=== PATIENT | male | born 1955 | race Two or more races ===

== ENCOUNTER 2019-02-01 09:32 | Day surgery (SDC) | payer OTHER ==
[~2019-02-01] VITALS: Ht 162.6 cm; Wt 71.5 kg
[~2019-02-01 09:32] MED LIST: ASPI325T8 PO; ASPI81TA59 PO; ATOR20TA58 PO; BUPIVACAINE-EPI 0.25%-1:200000 MPF 30 ML VIAL. INJ ONE; HYDROmorphone 2 MG/ML VIAL IV PRN; IV RINGERS,LACTATED 1000ML 1,000 ML IV SCH; LISI-334 PO; LISI10TA2 PO; MECL-51 PO; MORPHINE SULFATE 2 MG/ML VIAL. IV PRN; ONDANSETRON PF 4 MG/2 ML VIAL. IV PRN; PRAV20TA2 PO; PROCHLORPERAZINE 10 MG/2 ML VIAL. IV PRN; fentaNYL PF VIAL 100 MCG/2 ML VIAL IV PRN
[2019-02-01] MEDS ORDERED: ACETAMINOPHEN 500 MG TABLET PO ONE (09:45)
[2019-02-01] MEDS ORDERED: fentaNYL PF VIAL 100 MCG/2 ML VIAL ONE ×3 (10:34→12:57)
[2019-02-01] MEDS ORDERED: FAMOTIDINE 20 MG/2 ML VIAL ONE (10:34)
[2019-02-01] MEDS ORDERED: PROPOFOL 20 ML IV ONE (10:34)
[2019-02-01] MEDS ORDERED: DEXAMETHASONE SOD PHOS 20 MG/5 ML VIAL. ONE (10:34)
[2019-02-01] MEDS ORDERED: ONDANSETRON PF 4 MG/2 ML VIAL. ONE (10:34)
[2019-02-01] MEDS ORDERED: LIDOCAINE 2% PF 5 ML VIAL. ONE (10:34)
[2019-02-01] MEDS ORDERED: ROCURONIUM 50 MG/5 ML VIAL. ONE (10:34)
[2019-02-01 11:05] LABS: BASO # 0.1 x10^3/uL (0.0-0.2); BASO % 1 % (0-3); EOS # 0.5 x10^3/uL (0.0-0.7); EOS % 6 % (0-3); HEMATOCRIT 43.8 % (39.0-53.0); HEMOGLOBIN 15.1 g/dL (13.0-17.5); LYMPH # 2.2 x10^3/uL (1.0-4.8); LYMPH % 27 % (24-48); MEAN CORPUSCULAR HEMOGLOBIN 34 pg (25-35); MEAN CORPUSCULAR HGB CONC 34 g/dL (31-37); MEAN CORPUSCULAR VOLUME 98 fL (79-100); MONO # 0.7 x10^3/uL (0.0-1.1); MONO % 9 % (0-9); NEUT # 4.7 x10^3/uL (1.8-7.7); NEUT % 57 % (31-73); RED BLOOD COUNT 4.47 x10^6/uL (4.30-5.70); RED CELL DISTRIBUTION WIDTH 12.9 % (11.5-14.5); WHITE BLOOD COUNT 8.3 x10^3/uL (4.0-11.0)
[2019-02-01] MEDS ORDERED: ePHEDrine PF IN SALINE 50 MG/10 ML SYRINGE. IV ONE (11:10)
[2019-02-01 11:11] LABS: CALCIUM 8.6 mg/dL (8.5-10.1); CREATININE 1.2 mg/dL (0.7-1.3); GFR 61.1; POTASSIUM 3.9 mmol/L (3.5-5.1)
[2019-02-01 11:14] LABS: PROTHROMBIN TIME PATIENT 13.3 SEC (11.7-14.0)
[2019-02-01 11:41] LABS: PLT ESTIMATE DECREASED (ADEQUATE)
[2019-02-01] MEDS ORDERED: NEOSTIGMINE METHYLSULFATE 5 MG/5 ML SYRINGE. ONE (12:19)
[2019-02-01] MEDS ORDERED: GLYCOPYRROLATE 1 MG/5 ML VIAL. ONE (12:21)
[2019-02-01 12:26] LABS: PLATELET COUNT 112 x10^3/uL (140-400)
--- NOTE | 2019-02-01 12:27 | PDOC4 ---
Operative Note Operative Note Date: 02/01/2019 Preoperative diagnosis: Bilateral inguinal hernias Postoperative diagnosis: Same Procedure: Robotic-assisted laparoscopic bilateral inguinal hernia repairs with mesh Surgeon: Miguel Angel Specimen: None Dictation: Patient is a 64-year-old male with bilateral inguinal hernias that are becoming more painful or last several months. Procedure of robotic-assisted laparoscopic bilateral hernia repair with mesh was explained to the patient in detail as well as his family were through an cigarette catcher all risks benefits were also discussed including bleeding infection injury to intra- abdominal contents possibly necessitating further or open operations alternatives to this procedure also discussed with the patient and family seem to understand and gave both verbal and written consent to have the procedure performed. Patient was taken to the operating room placed in supine position general anesthesia was initiated once patient was sleep and intubated is placed in low lithotomy positioning and his abdomen was prepped and draped usual sterile fashion using ChloraPrep and area just above his umbilicus was injected with quarter percent Marcaine with epinephrine incision was made 11 blade scalpel varies needle was placed within the abdomen creating pneumoperitoneum once this was complete 8mm da Sky port was placed and a da Sky camera was placed within the abdomen which was inspected no other abdomen maladies were noted was noted that he had bilateral inguinal hernias with no incarceration. 8mm da Sky port was placed in the right mid abdomen and one in the right left abdomen the da Sky robot was then brought in and docked all port sites surgeon went to the robotic console using grasper and Endo Isac scissors the peritoneum was incised on the right side a flap was propagated posteriorly reducing the hernia sac. Attention is then turned to the left side in similar fashion a window was made in the peritoneum reducing the hernia sac. Bard 3-D max mesh for the right and left side were both used in place on the appropriate sides covering the hernia defect the peritoneum was then closed with running 20V lock suture. The robot was undocked from all port sites all ports removed pneumoperitoneum reduced all incisions were closed for septic and a Monocryl Mastisol Steri-Strips and island dressings were applied. Patient was awakened and asked bated operating room taken to recovery in stable condition all sponge instrument needle counts listed as correct estimate blood loss 5 mL BOAZ MONTENEGRO MD Feb 01, 2019 12:27
--- NOTE | 2019-02-01 12:29 | DISCH ---
DISCHARGE INSTRUCTIONS Condition on Discharge Condition on Discharge: Stable Activity After Discharge Activity Instructions for Disc: Avoid exertion Other activity instructions: no lifting more than 20 pounds for 2 weeks Diet after Discharge Diet after Discharge: Regular Wound Incision Care Wound/Incision Care: May get incision wet, Other, see below Other wound/incision instructi: May shower in 24 hours Contacting the [facility] after DC Call your doctor for: If your condition worsens Follow-Up Follow up with: Dr. Montenegro in 2 weeks Treatment/Equipment after DC Adaptive Equipment Issued: None BOAZ MONTENEGRO MD Feb 01, 2019 12:29
[2019-02-01] MEDS ORDERED: DESFLURANE 61 TO 120 MINUTES IH ONE (12:38)
[2019-02-01] MEDS: fentaNYL PF VIAL 100 MCG/2 ML VIAL IV PRN ×2 (13:14→13:32)
[2019-02-01] MEDS ORDERED: OXYC1TAB15 PO (13:29)
[2019-02-01] MEDS ORDERED: oxyCODONE/APAP 5/325 1 TAB TABLET PO ONE ×2 (13:45)
[2019-02-01 14:02] VITALS: BP 136/64
== END 2019-02-01 18:30 | disposition home or self-care (01) ==
LOC: SURG 09:32 → MERGE 11:15 → SURG 18:30
PROVIDERS: ATTEND Surgery
DX: K40.20 Bilateral inguinal hernia, without obstruction or gangrene, not specified as recurrent (principal); E78.5 Hyperlipidemia, unspecified; I10 Essential (primary) hypertension; Z79.01 Long term (current) use of anticoagulants; Z79.82 Long term (current) use of aspirin; Z86.73 Personal history of transient ischemic attack (TIA), and cerebral infarction without residual deficits; Z87.891 Personal history of nicotine dependence
CPT/HCPCS: 36415; 49650; 80048; 85025; 85610; 85730; A7015; C1781; J0171; J0690; J1100; J2001; J2405; J2704; J2710; J3010; J3490; J7120; S2900

== ENCOUNTER 2019-02-26 13:27 | Emergency (ER) | payer MEDICARE, OTHER ==
[~2019-02-26] VITALS: Ht 162.6 cm; Wt 71.7 kg
[~2019-02-26 13:27] MED LIST changes: -BUPIVACAINE-EPI 0.25%-1:200000 MPF 30 ML VIAL. INJ ONE; -HYDROmorphone 2 MG/ML VIAL IV PRN; -IV RINGERS,LACTATED 1000ML 1,000 ML IV SCH; -MORPHINE SULFATE 2 MG/ML VIAL. IV PRN; -ONDANSETRON PF 4 MG/2 ML VIAL. IV PRN; +OXYC1TAB15 PO; -PROCHLORPERAZINE 10 MG/2 ML VIAL. IV PRN; -fentaNYL PF VIAL 100 MCG/2 ML VIAL IV PRN
--- NOTE | 2019-02-26 14:54 | RAD ---
Examination: CT of the abdomen pelvis without contrast HISTORY: History of left-sided pain after lifting COMPARISON: None available TECHNIQUE: Axial CT images of the abdomen pelvis without contrast. Coronal and sagittal reformats are performed. Exposure: One or more of the following individualized dose reduction techniques were utilized for this examination: 1. Automated exposure control 2. Adjustment of the mA and/or kV according to patient size 3. Use of iterative reconstruction technique FINDINGS: Mild bibasilar lung atelectasis. No evidence of free air identified in the abdomen. The evaluation of the solid organs is limited due to lack of IV contrast. The evaluation of bowel is limited due to lack of oral contrast. The noncontrasted liver, spleen, adrenals grossly appears unremarkable. The gallbladder is mildly distended. The stomach is minimally distended. The visualized pancreas grossly appears unremarkable. The small bowel is nondilated. Feces and gas noted in the colon. No evidence of intrarenal collecting system calculi or hydronephrosis. Urinary bladder is mildly distended. Surgical changes of hernia repair. Moderate aortic atherosclerosis. Moderate degenerative changes thoracolumbar spine. Probable prior surgical changes anterior right superior iliac spine. IMPRESSION: 1. No acute intra-abdominal findings. Electronically signed by: Rob Harden MD (02/26/2019 2:51 PM) [facility]
[2019-02-26 15:50] LABS: BILIRUBIN,URINE NEGATIVE (NEG); CLARITY,URINE CLEAR; COLOR,URINE YELLOW; NITRITE,URINE NEGATIVE (NEG); PH,URINE 5.5; PROTEIN,URINE NEGATIVE (NEG-TRACE); UROBILINOGEN,URINE 0.2 mg/dL (0.2 mg/dL)
[2019-02-26 16:00] LABS: BACTERIA,URINE 0 /HPF (0-FEW); RBC,URINE 0 /HPF (0-2); WBC,URINE 0 /HPF (0-4)
--- NOTE | 2019-02-26 16:15 | PHYS DOC ---
Past Medical History Past Medical History: Hypertension Past Surgical History: Appendectomy, Other Additional Past Surgical Histo: back Alcohol Use: None Drug Use: None Adult General Chief Complaint Chief Complaint: GROIN PAIN HPI HPI Patient is a 64 year old Welsh speaking male who presents with complaining of pain in hernia surgery area. Patient had bilateral laparoscopic inguinal hernia repair 3 weeks ago. She states he lifted about 50 pounds back one week ago and felt pain in left groin area that getting worse with activity and walking. Patient denies abdominal pain, nausea and vomiting, diarrhea and constipation, fever and chills, urinary symptom, bulging at the area of surgery. Patient denies any pain in supine position and doesn't want to have pain medication. Review of Systems Review of Systems Constitutional: Denies fever or chills [] Eyes: Denies change in visual acuity, redness, or eye pain [] HENT: Denies nasal congestion or sore throat [] Respiratory: Denies cough or shortness of breath [] Cardiovascular: No additional information not addressed in HPI [] GI: Denies abdominal pain, nausea, vomiting, bloody stools or diarrhea [] : Denies dysuria or hematuria [] Musculoskeletal: Denies back pain or joint pain [] Integument: Denies rash or skin lesions [] Neurologic: Denies headache, focal weakness or sensory changes [] Endocrine: Denies polyuria or polydipsia [] All other systems were reviewed and found to be within normal limits, except as documented in this note. Allergies Allergies Allergies Coded Allergies Type Severity Reaction Last Updated Verified No Known Drug Allergies 10/12/13 No Physical Exam Physical Exam Constitutional: Well developed, well nourished, no acute distress, non-toxic appearance. [] HENT: Normocephalic, atraumatic. Eyes: PERRLA, EOMI, conjunctiva normal, no discharge. [] Neck: Normal range of motion, no tenderness, supple, no stridor. [] Cardiovascular:Heart rate regular rhythm, no murmur [] Lungs & Thorax: Bilateral breath sounds clear to auscultation [] Abdomen: Bowel sounds normal, soft, no tenderness, no masses, no pulsatile masses. clean laparoscopic incision area, bilateral inguinal without sign of infection or hernia[] Skin: Warm, dry, no erythema, no rash. [] Back: No tenderness, no CVA tenderness. [] Extremities: No tenderness, no cyanosis, no clubbing, ROM intact, no edema. [] Neurologic: Alert and oriented X 3, no focal deficits noted. [] Psychologic: Affect normal, judgement normal, mood normal. [] Current Patient Data Vital Signs Vital Signs Date Time Temp Pulse Resp B/P (MAP) Pulse Ox O2 Delivery O2 Flow Rate FiO2 02/26/19 13:35 98.6 92 16 139/75 (96) 97 Room Air 98.6 Lab Values Laboratory Tests Test 02/26/19 15:16 Urine Collection Type Unknown Urine Color Yellow Urine Clarity Clear Urine pH 5.5 Urine Specific [place]xton <=1.005 Urine Protein Negative mg/dL (NEG-TRACE) Urine Glucose (UA) Negative mg/dL (NEG) Urine Ketones (Stick) Negative mg/dL (NEG) Urine Blood Negative (NEG) Urine Nitrite Negative (NEG) Urine Bilirubin Negative (NEG) Urine Urobilinogen Dipstick 0.2 mg/dL (0.2 mg/dL) Urine Leukocyte Esterase Negative (NEG) Urine RBC 0 /HPF (0-2) Urine WBC 0 /HPF (0-4) Urine Bacteria 0 /HPF (0-FEW) EKG EKG [] Radiology/Procedures Radiology/Procedures [][facility] [address], [place] [id number] IMAGING REPORT Signed PATIENT: MALACHI LIRAOUNT: [id number] : 1955 LOCATION: ER AGE: 64 SEX: M EXAM STATUS: REG ER ORD. PHYSICIAN: ALLISON CANTU MD REASON: Bilateral inguinal surgery, pain in left side after lifting PROCEDURE: CT ABDOMEN PELVIS WO CONTRAST Examination: CT of the abdomen pelvis without contrast HISTORY: History of left-sided pain after lifting COMPARISON: None available TECHNIQUE: Axial CT images of the abdomen pelvis without contrast. Coronal and sagittal reformats are performed. Exposure: One or more of the following individualized dose reduction techniques were utilized for this examination: 1. Automated exposure control 2. Adjustment of the mA and/or kV according to patient size 3. Use of iterative reconstruction technique FINDINGS: Mild bibasilar lung atelectasis. No evidence of free air identified in the abdomen. The evaluation of the solid organs is limited due to lack of IV contrast. The evaluation of bowel is limited due to lack of oral contrast. The noncontrasted liver, spleen, adrenals grossly appears unremarkable. The gallbladder is mildly distended. The stomach is minimally distended. The visualized pancreas grossly appears unremarkable. The small bowel is nondilated. Feces and gas noted in the colon. No evidence of intrarenal collecting system calculi or hydronephrosis. Urinary bladder is mildly distended. Surgical changes of hernia repair. Moderate aortic atherosclerosis. Moderate degenerative changes thoracolumbar spine. Probable prior surgical changes anterior right superior iliac spine. IMPRESSION: 1. No acute intra-abdominal findings. Electronically signed by: Rob Harden MD (02/26/2019 2:51 PM) [id number] DICTATED and SIGNED BY: ROB HARDEN MD DATE: 02/26/19 1451 Course & Med Decision Making Course & Med Decision Making Pertinent Labs and Imaging studies reviewed. (See chart for details) Evaluation of patient in ER showed 63-year-old male patient with history of recent bilateral hernia repair and pain in the left side after lifting weight. Patient had unremarkable scar exam and UA and CT abdomen and pelvis and didn't want pain medication in ER. Patient was advised to follow-up with his surgeon and take [id number] pain medication as needed. Dragon Disclaimer Dragon Disclaimer This electronic medical record was generated, in whole or in part, using a voice recognition dictation system. Departure Departure Impression: Primary Impression: Postoperative pain Disposition: HOME, SELF-CARE (at 1608) Condition: STABLE Referrals: DINH NORTH MD (PCP) BOAZ MONTENEGRO MD Patient Instructions: Abdominal Surgery, Problems After Additional Instructions: Apply warm compress on affected area Follow-up with your primary care physician in 3-5 days Return to ER if not getting better ALLISON CANTU MD Feb 26, 2019 16:15
[2019-02-26 16:30] VITALS: BP 118/70
== END 2019-02-26 16:30 | disposition home or self-care (01) ==
LOC: ER 13:27
DX: G89.18 Other acute postprocedural pain (principal); R10.32 Left lower quadrant pain; I10 Essential (primary) hypertension; Z90.89 Acquired absence of other organs
CPT/HCPCS: 74176; 81001; 99285-25